=== PATIENT | male | born 1990 | race Caucasian/White ===

== ENCOUNTER 2017-12-29 14:24 | Emergency (ER) | payer OTHER, BC ==
[2017-12-29] MEDS ORDERED: Acetaminophen/HYDROcodone 325-5 MG Tab PO ONE (15:29)
--- NOTE | 2017-12-29 15:41 | EDM.PDOC ---
ED HPI GENERAL MEDICAL PROBLEM - General Chief Complaint: Back Pain or Injury Stated Complaint: LOW BACK INJURY Time Seen by Provider: 12/29/17 14:53 Source of Information: Reports: Patient, Significant Other (Girlfriend) History Limitations: Reports: No Limitations - History of Present Illness INITIAL COMMENTS - FREE TEXT/NARRATIVE: The patient states that he was working on his semitruck about 6 feet off the ground, when his feet slipped and he fell onto his sacrum on ice, around 14:00 this afternoon. He reports pain to his sacral area as well as to his posterior left thigh. He denies loss of consciousness. The patient is otherwise uninjured. No prior similar injuries. The patient's PCP is Annita Clancy. Lower Back Pain Score (Numeric/FACES): 8 - Related Data Allergies Allergy/AdvReac Type Severity Reaction Status Date / Time Penicillins Allergy Cannot Verified 12/29/17 14:48 Remember Home Meds: Home Meds Dextroamphetamine/Amphetamine [Adderall Xr 15 mg Capsule] 1 cap PO ASDIRECTED [History] Past Medical History Psychiatric History: Reports: ADHD - Past Surgical History Musculoskeletal Surgical History: Reports: ORIF (left ankle), Shoulder Surgery ( right, labral tear + rotator cuff, arthroscopic) Social & Family History - Tobacco Use Tobacco Use Within Last Twelve Months: Smokeless Tobacco (Chews 1/3 can/day) - Caffeine Use Caffeine Use: Reports: Coffee - Alcohol Use Alcohol Use History: No - Recreational Drug Use Recreational Drug Use: No - Living Situation & Occupation Living situation: Reports: , with Significant Other (Girlfriend) 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 ED EXAM,LOWER BACK PAIN/INJURY - Physical Exam Exam: See Below Exam Limited By: No Limitations General Appearance: Alert, WD/WN, No Apparent Distress Back Exam: Other (There is an abrasion to the upper medial right buttock. The patient reports tenderness in that area, as well as to the central sacrum.) Extremities: Other (No visible abnormality to the posterior left thigh, such as swelling, erythema, ecchymosis, or abrasion) Course - Vital Signs Last Recorded V/S: Last Vital Signs Temp 37.1 C 12/29/17 14:43 Pulse 80 12/29/17 14:43 Resp 18 12/29/17 14:43 BP 107/76 12/29/17 14:43 Pulse Ox 100 12/29/17 14:43 - Orders/Labs/Meds Meds: Medications Discontinued Medications Generic Name Dose Route Start Last Admin Trade Name Jack PRN Reason Stop Dose Admin Hydrocodone Bitart/Acetaminophen 2 tab 12/29/17 15:29 12/29/17 15:44 [place] 325-5 Mg PO 12/29/17 15:30 2 tab ONETIME ONE Administration - Re-Assessments/Exams Free Text/Narrative Re-Assessment/Exam: 12/29/17 15:45 3-view radiographs of the sacrum appear to be without fracture, however, I have asked Dr. Romero to read the films, to be sure. 12/29/17 15:55 3-view radiographs of the sacrum and coccyx is read by Dr. Romero as: 1. Incidental retrolisthesis at L5-S1. 2. 3 view sacrum and coccyx study is otherwise unremarkable. 12/29/17 15:58 X-ray results discussed with the patient and his girlfriend., No fractures were identified. I will discharge the patient home with a note for work through 01/03/2018. I'm recommending that he take lira-kjq-dfglirx ibuprofen and stay ambulatory. If his symptoms have not improved within a few days, I would like him to follow-up with his PCP, Annita Clancy. Departure - Departure Time of Disposition: 16:06 Disposition: Home, Self-Care 01 Condition: Fair Clinical Impression: Sacral contusion - Discharge Information Referrals: Graciela Clancy DIRECTOR FUNDRAISING [Primary Care Provider] - Forms: ED Department Discharge, ED Return to Work/School Form Additional Instructions: You were seen in the emergency room after falling off your truck, landing on her tailbone. Workup in the ER included x-rays of your sacrum and coccyx. No broken bones were found. You have MOST LIKELY contused (bruised) your sacrum. We recommend that you take chlw-roa-cohptjy ibuprofen, 2-3 tablets (400-600 mg) every 8 hours, with food, as needed for discomfort. It is important that you continue to walk around. Lying in bed will along your discomfort. A note for work has been written for 5 days. If you require longer than that, please follow-up with your PCP, Annita Clancy. If any other problems, please do not hesitate to return to the ER.
--- NOTE | 2017-12-29 15:53 | CR ---
Sacrum and coccyx: 3 views showing the sacrum and coccyx were obtained. Sacroiliac joints appear within normal limits. Sacral foramina also appear within normal limits. Minimal retrolisthesis is noted at L5-S1 felt to be incidental. No fracture or other abnormality is appreciated. Impression: 1. Incidental retrolisthesis at L5-S1. 2. 3 view sacrum and coccyx study is otherwise unremarkable. Diagnostic code #2
== END 2017-12-29 16:28 | disposition home or self-care (01) ==
LOC: JD.ED 14:24
DX: S30.0XXA Contusion of lower back and pelvis, initial encounter (principal); Z88.0 Allergy status to penicillin; W17.89XA Other fall from one level to another, initial encounter
CPT/HCPCS: 72220; 99283; A9270

== ENCOUNTER 2018-04-20 21:16 | Emergency (ER) | payer BC, OTHER ==
--- NOTE | 2018-04-20 22:18 | EDM.PDOC ---
ED HPI GENERAL MEDICAL PROBLEM - General Chief Complaint: Cardiovascular Problem Stated Complaint: RAPID HEART BEAT Time Seen by Provider: 04/20/18 21:46 Source of Information: Reports: Patient History Limitations: Reports: No Limitations - History of Present Illness INITIAL COMMENTS - FREE TEXT/NARRATIVE: 28-year-old male presents for evaluation and treatment of a rapid heart rate. Patient reports around noon today he was playing golf. 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 Reports this lasted about an hour. During this time he took his heart rate with a sensor on his phone and double checked it against a friends, reports his heart rate was in the 200s. Since then he feels that his chest is constricted. The dizziness, shortness of breath and palpitations have resolved. He felt that his left arm was numb and tingling as well as the back of his head with tingling during this episode. His symptoms have now mostly resolved. He denies any nausea, vomiting or diaphoresis. Denies any recent cough or cold symptoms. Denies any recent surgeries, travel or trauma. No history of any prior DVTs, PEs or any known blood clotting disorders. No history of cardiac problems. Reports 8 years ago after surgery he was told he had something but does not know what that was. Patient reports the only medication he is on his Adderall. He takes this as needed for his job maybe once every 1-2 days. Primary care provider is Annita Clancy. - Related Data Allergies Allergy/AdvReac Type Severity Reaction Status Date / Time Penicillins Allergy Cannot Verified 04/20/18 21:30 Remember Home Meds: Home Meds Dextroamphetamine/Amphetamine [Adderall Xr 15 mg Capsule] 1 cap PO ASDIRECTED PRN 12/29/17 [History] Past Medical History Psychiatric History: Reports: ADHD - Past Surgical History Musculoskeletal Surgical History: Reports: ORIF, Shoulder Surgery Social & Family History - Tobacco Use Smoking Status *Q: Current Some Day Smoker Years of Tobacco use: 2 Packs/Tins Daily: 0.1 - Caffeine Use Caffeine Use: Reports: Coffee, Energy Drinks - Recreational Drug Use Recreational Drug Use: No - Living Situation & Occupation Living situation: Reports: , with Significant Other (Girlfriend) 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 Denies: Syncope GI/Abdominal: Denies: Nausea, Vomiting Neurological: Reports: Dizziness (earlier, now resolved), Numbness (left arm, neck and back of head), Tingling (left arm, neck and back of head). Denies: Syncope ED EXAM, GENERAL - Physical Exam Exam: See Below Exam Limited By: No Limitations General Appearance: Alert, WD/WN, No Apparent Distress Nose: Normal Inspection Throat/Mouth: Normal Inspection, Normal Voice, No Airway Compromise Respiratory/Chest: No Respiratory Distress, Lungs Clear, Normal Breath Sounds Cardiovascular: Normal Peripheral Pulses, Regular Rate, Rhythm, No Murmur Peripheral Pulses: 2+: Radial (L), Radial (R) GI/Abdominal: Soft, Non-Tender Neurological: Alert, Oriented, Normal Cognition Psychiatric: Normal Affect, Normal Mood Skin Exam: Warm, Dry, Normal Color EKG INTERPRETATION EKG Date: 04/20/18 Time: 21:45 Rhythm: NSR Rate (Beats/Min): 76 [place]: Normal P-Wave: Present QRS: Normal ST-T: Normal QT: Normal EKG Interpretation Comments: NSR at 76 bpm, + delta waves indicating WPW. No ischemic changes. No LAD. No LVH. No IVCDs. QTc within normal limits. Reviewed by myself and Dr. Morales. Course - Vital Signs Last Recorded V/S: Last Vital Signs Temp 97.8 F 04/20/18 23:29 Pulse 85 04/20/18 21:24 Resp 13 04/20/18 23:29 BP 129/83 04/20/18 23:29 Pulse Ox 100 04/20/18 23:29 - Orders/Labs/Meds Labs: Laboratory Tests 04/20/18 04/20/18 Range/Units 21:50 21:50 WBC 8.32 (4.23-9.07) K/mm3 RBC 4.81 (4.63-6.08) M/mm3 Hgb 14.8 (13.7-17.5) gm/L Hct 41.5 (40.1-51.0) % MCV 86.3 (79.0-92.2) fl MCH 30.8 (25.7-32.2) pg MCHC 35.7 H (32.2-35.5) g/dl RDW Std Deviation 39.6 (35.1-43.9) fL Plt Count 306 (163-337) K/mm3 MPV 10.3 (9.4-12.3) fl Neut % (Auto) 62.1 (34.0-67.9) % Lymph % (Auto) 27.9 (21.8-53.1) % [place] % (Auto) 8.5 (5.3-12.2) % Eos % (Auto) 1.0 (0.8-7.0) Baso % (Auto) 0.4 (0.1-1.2) % Neut # (Auto) 5.17 (1.78-5.38) K/mm3 Lymph # (Auto) 2.32 (1.32-3.57) K/mm3 [place] # (Auto) 0.71 (0.30-0.82) K/mm3 Eos # (Auto) 0.08 (0.04-0.54) K/mm3 Baso # (Auto) 0.03 (0.01-0.08) K/mm3 Sodium 142 (136-145) mEq/L Potassium 3.9 (3.5-5.1) mEq/L Chloride 107 (98-107) mEq/L Carbon Dioxide 29 (21-32) mEq/L Anion Gap 9.9 (5-15) BUN 11 (7-18) mg/dL Creatinine 1.2 (0.7-1.3) mg/dL Est Cr Clr Drug Dosing 90.32 mL/min Estimated GFR (MDRD) > 60 (>60) mL/min BUN/Creatinine Ratio 9.2 L (14-18) Glucose 105 (74-106) mg/dL Calcium 8.7 (8.5-10.1) mg/dL Magnesium 2.0 (1.8-2.4) mg/dl Total Bilirubin 0.6 (0.2-1.0) mg/dL AST 15 (15-37) U/L ALT 21 (16-63) U/L Alkaline Phosphatase 56 (46-116) U/L Total Protein 7.1 (6.4-8.2) g/dl Albumin 4.1 (3.4-5.0) g/dl Globulin 3.0 gm/dL Albumin/Globulin Ratio 1.4 (1-2) TSH 3rd Generation 1.407 (0.358-3.74) uIU/mL - Radiology Interpretation Free Text/Narrative:: chest xray shows no acute intrathoracic process - Re-Assessments/Exams Free Text/Narrative Re-Assessment/Exam: 04/20/18 23:01 Reviewed the labs, EKG and chest x-ray with the patient. His EKG shows delta waves. This is consistent with Nmphc-Kahrypvag-Rjziq. His symptoms he had today were likely a tachycardia which self resolved. I educated the patient on Egvgs-Ekjyhtlnh-Demud. I will refer him to EP for further management. I recommend he avoid medications that could prolong his QT interval. Educated on risk of going into a tachycardia. Encouraged to return the ER if these develop. Educated on risk of sudden cardiac . Patient has been on the monitor during his ER stay and other than a sinus tach in the low teens with standing has not had arrhythmias. I will have him follow-up with EP. Follow-up with primary care provider as needed. Discharge instructions as documented. 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 Recommend Dr. Hernandez in [place] at [facility]. Call [phone] to schedule with him. Please that them know that you have Aplre-Jofyzofzv-Rpaic found in the ED and it was recommended that you follow-up with him. Follow-up with your primary care provider as needed. If you need any additional assistance with referral please contact your primary care provider Recommend avoiding medications that can prolong the QT interval. Mention this if you ever receive any additional medications. Several antibiotics, antiemetics and antidepressants will prolong the QT interval. If you develop palpitations and symptoms similar to what you expands earlier today recommend follow-up in the ED immediately. you may be in a tachycardia that may require medications or possible electrical conversion to get you out of the tachycardia. Recommend you consider stopping your Adderall. Adderall will not cause you to go into a tachycardia but this may worsen your tachycardia should you go into one. Please return to the ER should your symptoms change or worsen.
--- NOTE | 2018-04-21 06:51 | CR ---
Chest: Two views of the chest were obtained. Comparison: No prior chest x-ray. Heart size and mediastinum are within normal limits. Lungs are clear. Minimal scoliosis is noted within the spine. Impression: 1. Incidental findings. Nothing acute is seen on two-view chest x-ray. Diagnostic code #2
== END 2018-04-20 23:18 | disposition home or self-care (01) ==
LOC: JD.ED 21:16
DX: I45.6 Pre-excitation syndrome (principal); F17.210 Nicotine dependence, cigarettes, uncomplicated; Z88.0 Allergy status to penicillin
CPT/HCPCS: 36415; 71046; 71046-26; 80053; 83735; 84443; 85025; 93005; 99285-25

== ENCOUNTER 2019-02-24 20:52 | Emergency (ER) | payer BC ==
[2019-02-24] MEDS ORDERED: Bupivacaine 0.5% 10 ML SDV INJECT ONE (21:45)
[2019-02-24] MEDS ORDERED: EPINEPHrine/Lidocaine/Tetracai 3 ML ML TOP ONE (21:45)
[2019-02-24] MEDS ORDERED: Lidocaine 1% with EPINEPHrine 1:100,000 20 ML MDV INJECT ONE (21:45)
--- NOTE | 2019-02-24 21:47 | EDM.PDOC ---
ED HPI GENERAL MEDICAL PROBLEM - General Chief Complaint: Bite:Animal, Insect Stated Complaint: DOG BITE Time Seen by Provider: 02/24/19 21:31 Source of Information: Reports: Patient, RN Notes Reviewed History Limitations: Reports: No Limitations - History of Present Illness INITIAL COMMENTS - FREE TEXT/NARRATIVE: The patient states that his dog, a chocolate lab pop, got caught between 2 vertical posts of a fence on his property around 20:30 tonight. When the patient went to free the dog, who was panicking, the patient was accidentally bitten on his face. He presents with a laceration to his upper lip, as well as a small abrasion to his nose. He is otherwise uninjured. The patient's last tetanus vaccination was in 2016. The dog's vaccinations are up-to-date. The patient's PCP is Natividad Ace NP. 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) Musculoskeletal History: Reports: Fracture (left ankle) Psychiatric History: Reports: ADHD - Past Surgical History HEENT Surgical History: Reports: Oral Surgery (wisdom teeth extraction) Musculoskeletal Surgical History: Reports: ORIF (left ankle), Shoulder Surgery ( right arthroscopic labral tear & rotator cuff repair) Social & Family History - Family History Family Medical History: Noncontributory - Tobacco Use Smoking Status *Q: Current Every Day Smoker Tobacco Use Within Last Twelve Months: Other (See Below) (Vapes) Years of Tobacco use: 3 Packs/Tins Daily: 0.2 Packs/Tins Daily Comment: Down from 1 ppd - Caffeine Use Caffeine Use: Reports: Coffee, Energy Drinks, Soda, Tea - Alcohol Use Alcohol Use History: No - Recreational Drug Use Recreational Drug Use: No - Living Situation & Occupation Living situation: Reports: , Alone 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 ED EXAM, ANIMAL BITE - Physical Exam Exam: See Below Exam Limited By: No Limitations General Appearance: Alert, WD/WN, No Apparent Distress Eye Exam: Bilateral Eye: EOMI, Normal Inspection Ears: Normal External Exam, Hearing Grossly Normal Nose: Normal Mucosa, No Blood, Other (Subtle abrasion to anterior surface) Throat/Mouth: Normal Teeth, Normal Gums, Normal Oropharynx, Normal Voice, No Airway Compromise, Other (There is a irregular laceration to the upper lip, just left of the midline. It is approximately the shape of a "7", with the horizontal portion measuring approximately 0.5 cm, and the vertical portion measuring approximately 1.0 cm, although there is some maceration at the inferior aspect of the vertical portion. The vertical portion also crosses the vermilion border, causing the horizontal portion to be above the lip. Mild swelling of the tissue, with minimal bleeding. There also appears to be a laceration on the mucosal surface of the upper lip on the right side. One of the patient's teeth likely punctured the lip. Suturing is not required to this laceration.) Head: Normocephalic ED ANIMAL BITE PROCEDURES - Laceration/Wound Repair Upper Medial Mouth Lac/Wound Length In cm: 1.5 Appearance: Subcutaneous, Stellate, Clean Distal NVT: Neuro & Vascular Intact, No Tendon Injury Anesthetic Type: Topical (LET) Skin Prep: Providone-Iodine (Betadine) Exploration/Debridement/Repair: Wound Explored, In a Bloodless Field, Explored to Base, No Foreign Material Found, Wound Margins Revised Closed With: Sutures Suture Size: other (5-0) # of Sutures: 6 Suture Type: Nylon (Ethilon), Interrupted, Simple Sterile Dressing Applied: None Tetanus Status Addressed: Yes Complications: No Course - Vital Signs Last Recorded V/S: Last Vital Signs Temp 36.9 C 02/24/19 21:05 Pulse 87 02/24/19 21:05 Resp 16 02/24/19 21:05 BP 137/89 02/24/19 21:05 Pulse Ox 100 02/24/19 21:05 - Orders/Labs/Meds Meds: Medications Discontinued Medications Generic Name Dose Route Start Last Admin Trade Name Freq PRN Reason Stop Dose Admin Bupivacaine HCl 10 ml 02/24/19 21:45 02/24/19 22:55 Sensorcaine-Mpf 0.5% INJECT 02/24/19 21:46 Not Given ONETIME ONE Lidocaine/Epinephrine 20 ml 02/24/19 21:45 02/24/19 22:55 Xylocaine 1% With Epinephrine 1:100,000 INJECT 02/24/19 21:46 Not Given ONETIME ONE Lidocaine/Tetracaine 3 ml 02/24/19 21:45 02/24/19 21:54 Consuelo Soriano TOP 02/24/19 21:46 3 ml ONETIME ONE Administration - Re-Assessments/Exams Free Text/Narrative Re-Assessment/Exam: 02/24/19 21:46 The laceration of the patient's upper lip will require suturing. I have ordered topical LET; I would like to use as little injectable anesthetic as possible, in order to have the best possible cosmetic outcome. 02/24/19 22:45 The patient had good anesthesia from the topical LET. His wound was closed with 6 simple interrupted sutures, using 5-0 Ethilon, to good cosmetic affect, however, there is a very small flap at the inferior aspect of the wound that I was unable to suture, given its tiny size. This may leave a small bump at the inferior aspect of the wound, after it has healed. This was explained to the patient. Departure - Departure Time of Disposition: 22:46 Disposition: Home, Self-Care 01 Condition: Good Clinical Impression: Dog bite of face, Lip laceration - Discharge Information *PRESCRIPTION DRUG MONITORING PROGRAM REVIEWED*: Not Applicable *COPY OF PRESCRIPTION DRUG MONITORING REPORT IN PATIENT RONDA: Not Applicable Instructions: Animal Bite, Adult Referrals: Natividad Ace MD [Primary Care Provider] - Forms: ED Department Discharge Additional Instructions: You were seen in the emergency room after being bitten on your upper lip by your dog. The laceration to your upper lip was closed with a total of 6 sutures. Keep the wound clean with ordinary soap and water when you bathe. Do not soak the wound, such as in the bath or swimming pool. Take afdp-pug-fpbvhds ibuprofen or acetaminophen as needed for discomfort. The sutures should be ready for removal on or about 03/04/2019. This can be done at the walk-in clinic, by a nurse at your doctor's office, or in the ER. Do not try to remove them yourself. If any other problems, please do not hesitate to return to the ER.
== END 2019-02-24 22:55 | disposition home or self-care (01) ==
LOC: JD.ED 20:52
DX: S01.551A Open bite of lip, initial encounter (principal); S01.25XA Open bite of nose, initial encounter; F17.210 Nicotine dependence, cigarettes, uncomplicated; Z88.0 Allergy status to penicillin; Z98.890 Other specified postprocedural states; W54.0XXA Bitten by dog, initial encounter
CPT/HCPCS: 12011; 99282; 99283

== ENCOUNTER 2023-07-24 17:53 | Emergency (ER) | payer SELFPAY | END 2023-07-24 19:34 | disposition home or self-care (01) | LOC: JD.ED 17:53 | DX: F19.10 Other psychoactive substance abuse, uncomplicated (principal); Z88.0 Allergy status to penicillin; Z87.891 Personal history of nicotine dependence | CPT/HCPCS: 99282 ==

== ENCOUNTER 2023-10-15 18:38 | Emergency (ER) | payer OTHER ==
[2023-10-15] MEDS ORDERED: Sodium Chloride 0.9% 10 ML Syringe FLUSH PRN (18:43)
[2023-10-15 19:02] LABS: BASOPHILS ABSOLUTE AUTO 0.1 K/mm3 (0.0-0.2); BASOPHILS PERCENT AUTO 0.5 % (0.0-1.0); EOSINOPHILS ABSOLUTE AUTO 0.1 K/mm3 (0.0-0.4); EOSINOPHILS PERCENT AUTO 0.5 % (0.0-6.0); HEMATOCRIT 46.1 % (42.0-52.0); HEMOGLOBIN 15.5 gm/dl (14.0-18.0); IMMATURE GRAN ABSOLUTE AUTO 0.03 K/mm3 (0.00-0.05); IMMATURE GRAN PERCENT AUTO 0.3 % (0.0-0.4); LYMPHOCYTES ABSOLUTE AUTO 1.8 K/mm3 (1.0-4.8); LYMPHOCYTES PERCENT AUTO 16.5 % (24.0-44.0); MEAN CORPUSCULAR HEMOGLOBIN 29.4 pg (28.0-32.0); MEAN CORPUSCULAR HGB CONC 33.6 g/dl (32.0-36.0); MEAN CORPUSCULAR VOLUME 87.5 fl (83.0-99.0); MEAN PLATELET VOLUME 9.7 fl (9.4-12.4); MONOCYTES ABSOLUTE AUTO 0.6 K/mm3 (0.0-0.8); MONOCYTES PERCENT AUTO 5.2 % (0.0-8.0); NEUTROPHILS ABSOLUTE AUTO 8.5 K/mm3 (1.8-7.7); PLATELET COUNT,PLT 359 K/mm3 (150-400); RED BLOOD CELL COUNT 5.27 M/mm3 (4.52-5.90); WHITE BLOOD CELL COUNT,WBC 11.08 K/mm3 (3.9-11.3)
[2023-10-15 19:30] LABS: A/G RATIO 1.2 (1-2); ALBUMIN 3.9 g/dl (3.4-5.0); ANION GAP 13.9 (5-15); BILIRUBIN TOTAL 0.8 mg/dL (0.2-1.0); BUN/CREATININE RATIO 7.7 (14-18); CALCIUM 9.2 mg/dL (8.5-10.1); CREATININE 1.3 mg/dL (0.7-1.3); EST CRCL DRUG DOSING (CG) 74.48 mL/min; POTASSIUM,K 3.9 mEq/L (3.5-5.1); PROTEIN TOTAL,TP 7.3 g/dl (6.4-8.2)
== END 2023-10-15 20:27 | disposition home or self-care (01) ==
LOC: JD.ED 18:38
DX: S09.90XA Unspecified injury of head, initial encounter (principal); S16.1XXA Strain of muscle, fascia and tendon at neck level, initial encounter; Z88.0 Allergy status to penicillin; V89.2XXA Person injured in unspecified motor-vehicle accident, traffic, initial encounter
CPT/HCPCS: 36415; 70450; 70450-26; 71045; 71045-26; 72125; 72125-26; 80053; 80307; 83690; 85025; 99284; 99285